=== PATIENT | female | born 1960 | race Caucasian/White ===

== ENCOUNTER 2022-03-06 17:18 | Inpatient (IN) | payer BC ==
[~2022-03-06] VITALS: Ht 170.2 cm; Wt 93.4 kg
[~2022-03-06 17:18] MED LIST: EXEN10PE4 SUBCUT; GLIP10TA11 PO; INSU100V26 SUBCUT; LISI40TA13 PO; METF-381 PO; VENL150C4 PO
[2022-03-06 17:20] VITALS: BP_SYST 152
[2022-03-06] MEDS ORDERED: ASPIRIN 81 MG TAB.CHEW PO ONE (17:45)
[2022-03-06] MEDS ORDERED: NITROGLYCERIN 0.4 MG TAB.SUBL SL ONE (18:00)
[2022-03-06] MEDS ORDERED: fentaNYL CITRATE/PF 100 MCG/2 ML AMP IVP ONE ×2 (18:00→21:30)
[2022-03-06] MEDS ORDERED: NITROGLYCERIN 1 INCH (GM) OINT. TD ONE (18:00)
[2022-03-06 18:08] LABS: BASOPHILS # (AUTO) 0.1 K/uL (0.0-0.2); BASOPHILS % (AUTO) 0.9 % (0.0-2.0); EOSINOPHILS # (AUTO) 0.2 K/uL (0.0-0.4); EOSINOPHILS % (AUTO) 2.2 % (0.0-4.0); HEMATOCRIT 38.7 % (36-48); HEMOGLOBIN 12.6 g/dL (12.0-16.0); LYMPHOCYTES # (AUTO) 3.1 K/uL (1.0-5.5); LYMPHOCYTES % (AUTO) 34.5 % (20.5-51.5); MEAN CORPUSCULAR HEMOGLOBIN 25 pg (27-31); MEAN CORPUSCULAR HGB CONC 33 % (32-36); MEAN CORPUSCULAR VOLUME 78 fL (79.0-98.0); MONOCYTES # (AUTO) 0.8 K/uL (0.0-1.0); MONOCYTES % (AUTO) 8.7 % (1.7-9.3); NEUTROPHILS # (AUTO) 4.9 K/uL (1.8-7.7); NEUTROPHILS % (AUTO) 53.7 % (40.0-70.0); PLATELET COUNT (AUTO) 320 K/uL (130-430); RED BLOOD CELL COUNT(AUTO) 4.99 MIL/uL (4.2-6.2); RED CELL DISTRIBUTION WIDTH 14.3 % (9.0-15.0)
[2022-03-06 18:40] LABS: CREATININE 0.93 mg/dL (0.55-1.30); POTASSIUM 3.9 mmol/L (3.5-5.1)
[2022-03-06 18:46] LABS: ALBUMIN 3.4 g/dL (3.4-4.8); TOTAL BILIRUBIN 0.1 mg/dL (0.0-1.0)
[2022-03-06] MEDS ORDERED: NITROGLYCERIN 0.4 MG TAB.SUBL SL PRN (20:45)
[2022-03-07] MEDS ORDERED: TEMAZEPAM 7.5 MG CAPSULE PO PRN (00:15)
[2022-03-07] MEDS ORDERED: ACETAMINOPHEN 325 MG TABLET PO PRN (00:15)
[2022-03-07] MEDS ORDERED: INSULIN ASPART 100 UNITS/ML, 10 ML VIAL (NovoLOG) SUBCUT PRN (00:15)
[2022-03-07 01:39] VITALS: BP_SYST 143
[2022-03-07 02:33] VITALS: BP_SYST 142
[2022-03-07 06:00] LABS: BASOPHILS # (AUTO) 0.1 K/uL (0.0-0.2); BASOPHILS % (AUTO) 1.1 % (0.0-2.0); EOSINOPHILS # (AUTO) 0.3 K/uL (0.0-0.4); EOSINOPHILS % (AUTO) 4.2 % (0.0-4.0); HEMATOCRIT 39.7 % (36-48); LYMPHOCYTES # (AUTO) 2.7 K/uL (1.0-5.5); LYMPHOCYTES % (AUTO) 37.8 % (20.5-51.5); MEAN CORPUSCULAR HEMOGLOBIN 26 pg (27-31); MEAN CORPUSCULAR HGB CONC 33 % (32-36); MEAN CORPUSCULAR VOLUME 78 fL (79.0-98.0); MONOCYTES # (AUTO) 0.8 K/uL (0.0-1.0); MONOCYTES % (AUTO) 11.4 % (1.7-9.3); NEUTROPHILS # (AUTO) 3.2 K/uL (1.8-7.7); NEUTROPHILS % (AUTO) 45.5 % (40.0-70.0); PLATELET COUNT (AUTO) 312 K/uL (130-430); RED BLOOD CELL COUNT(AUTO) 5.11 MIL/uL (4.2-6.2); RED CELL DISTRIBUTION WIDTH 13.9 % (9.0-15.0); WHITE BLOOD COUNT (AUTO) 7.1 K/uL (4.8-10.8)
[2022-03-07 06:32] LABS: CREATININE 0.8 mg/dL (0.55-1.30); POTASSIUM 3.9 mmol/L (3.5-5.1)
[2022-03-07] MEDS ORDERED: EXENATIDE SUBCUT SCH (07:00)
[2022-03-07 08:00] VITALS: BP_SYST 163
[2022-03-07] MEDS ORDERED: ATORVASTATIN 20 MG TABLET PO SCH (09:00)
[2022-03-07] MEDS ORDERED: ASPIRIN 81 MG TAB.CHEW PO SCH (09:00)
[2022-03-07] MEDS ORDERED: Effexor XR 37.5 MG PO SCH ×2 (09:00)
[2022-03-07] MEDS: CLOPIDOGREL BISULFATE 75 MG TABLET PO SCH (09:30)
[2022-03-07] MEDS: metFORMIN HCL 500 MG TABLET PO SCH ×2 (09:30→16:32)
[2022-03-07] MEDS: Effexor XR 37.5 MG PO SCH (09:32)
[2022-03-07] MEDS: CARVEDILOL 6.25 MG TABLET (COREG) PO SCH ×2 (09:33→21:58)
[2022-03-07] MEDS: lisinopriL 20 MG TABLET PO SCH (09:34)
[2022-03-07] MEDS ORDERED: DEXTROSE 50% JECT 50 ML DISP.SYRIN ONE (10:38)
[2022-03-07 12:00] VITALS: BP_SYST 138
[2022-03-07] MEDS ORDERED: HYDROmorphone 2 MG/ML VIAL IVP PRN (15:15)
[2022-03-07 16:30] VITALS: BP_SYST 135
[2022-03-07] MEDS ORDERED: RIVAROXABAN 10 MG TABLET PO SCH (18:00)
[2022-03-07] MEDS ORDERED: DEXTROSE 50% JECT 50 ML DISP.SYRIN IVP PRN (18:00)
[2022-03-07] MEDS ORDERED: FOLI-43 PO (18:18)
[2022-03-07] MEDS ORDERED: LIP80 PO (18:18)
[2022-03-07] MEDS ORDERED: PRO40 PO (18:18)
[2022-03-07] MEDS ORDERED: TRAZ-250 PO (18:18)
[2022-03-07] MEDS ORDERED: DULO60CA42 PO (18:18)
[2022-03-07] MEDS ORDERED: ASPI-1393 PO (18:18)
[2022-03-07] MEDS ORDERED: EMPA10TA PO (18:18)
[2022-03-07] MEDS ORDERED: INSULIN GLARGINE SQ (18:18)
[2022-03-07] MEDS ORDERED: SEMA1PEN3 SQ (18:18)
[2022-03-07] MEDS ORDERED: PRED10TA PO (18:18)
[2022-03-07] MEDS ORDERED: AMLO5TAB4 PO (18:18)
[2022-03-07] MEDS ORDERED: POTA8CAP20 PO (18:18)
[2022-03-07] MEDS ORDERED: RIVA10TA PO (18:29)
[2022-03-07] MEDS ORDERED: ENOXAPARIN SODIUM 40 MG/0.4 ML SYRINGE SUBCUT SCH (21:00)
[2022-03-07] MEDS ORDERED: traZODone HCL 50 MG TABLET (DESYREL) PO SCH (21:00)
[2022-03-08 00:20] VITALS: BP_SYST 136
[2022-03-08] MEDS ORDERED: PANTOPRAZOLE SODIUM 40 MG TAB PO ONE (02:30)
[2022-03-08 08:00] VITALS: BP_SYST 133
[2022-03-08 08:31] LABS: ALBUMIN 3.1 g/dL (3.4-4.8); CALCIUM 9.1 mg/dL (8.4-11.0); CREATININE 0.83 mg/dL (0.55-1.30); POTASSIUM 3.9 mmol/L (3.5-5.1); THYROID STIMULATING HORMONE 0.37 uIu/mL (0.36-3.74); TOTAL BILIRUBIN 0.5 mg/dL (0.0-1.0)
[2022-03-08] MEDS ORDERED: ASPIRIN 81 MG TABLET(ECOTRIN) PO SCH (09:00)
[2022-03-08] MEDS ORDERED: RIVAROXABAN 10 MG TABLET PO SCH (09:00)
[2022-03-08] MEDS ORDERED: ATORVASTATIN 20 MG TABLET PO SCH (09:00)
[2022-03-08] MEDS ORDERED: NEPHROVITE, (FOLIC ACID/VITAMIN B COMP W-C 1 TAB) PO SCH (09:00)
[2022-03-08] MEDS ORDERED: amLODIPine BESYLATE 5 MG TABLET PO SCH ×2 (09:00)
[2022-03-08] MEDS ORDERED: lisinopriL 20 MG TABLET PO SCH (09:00)
[2022-03-08] MEDS ORDERED: DULoxetine HCL 30 MG CAPSULE.DR (CYMBALTA) PO SCH (09:00)
[2022-03-08] MEDS ORDERED: prednisoLONE 15 MG/5 ML UDC PO SCH (09:00)
[2022-03-08] MEDS: CARVEDILOL 6.25 MG TABLET (COREG) PO SCH (09:32)
[2022-03-08] MEDS: Effexor XR 37.5 MG PO SCH (09:34)
[2022-03-08] MEDS: CLOPIDOGREL BISULFATE 75 MG TABLET PO SCH (09:35)
[2022-03-08] MEDS: lisinopriL 20 MG TABLET PO SCH (09:35)
[2022-03-08 11:42] VITALS: BP_SYST 123
[2022-03-08] MEDS ORDERED: LISI20TA30 PO (15:48)
[2022-03-08 15:52] VITALS: BP_SYST 123
[2022-03-09] MEDS ORDERED: PANTOPRAZOLE SODIUM 40 MG TAB PO SCH (09:00)
== END 2022-03-09 16:28 | disposition home or self-care (01) | DRG 282 ==
LOC: SED 17:18 → STU 20:33
PROVIDERS: ADMIT Family Medicine; ATTEND Family Medicine
DX: I21.9 Acute myocardial infarction, unspecified (principal); I10 Essential (primary) hypertension; E11.9 Type 2 diabetes mellitus without complications; F32.A Depression, unspecified; G62.9 Polyneuropathy, unspecified; E66.01 Morbid (severe) obesity due to excess calories; I25.119 Atherosclerotic heart disease of native coronary artery with unspecified angina pectoris; Z20.822 Contact with and (suspected) exposure to COVID-19; Z95.5 Presence of coronary angioplasty implant and graft; I25.2 Old myocardial infarction; Z86.73 Personal history of transient ischemic attack (TIA), and cerebral infarction without residual deficits; Z88.5 Allergy status to narcotic agent; Z79.899 Other long term (current) drug therapy; Z90.710 Acquired absence of both cervix and uterus; Z90.49 Acquired absence of other specified parts of digestive tract; Z82.49 Family history of ischemic heart disease and other diseases of the circulatory system; Z83.3 Family history of diabetes mellitus; Z79.84 Long term (current) use of oral hypoglycemic drugs; Z79.4 Long term (current) use of insulin; Z79.02 Long term (current) use of antithrombotics/antiplatelets; Z79.01 Long term (current) use of anticoagulants; Z68.32 Body mass index [BMI] 32.0-32.9, adult
CPT/HCPCS: 36415; 71045; 80048; 80053; 80061; 82962; 83036; 83880; 84443; 84484; 85025; 93005; 93306; 96374; 96375; 99285; G0378; J1170; J1815; J3010